=== PATIENT | female | born 1995 | race Caucasian/White ===

== ENCOUNTER 2018-09-09 23:46 | Emergency (ER) | payer SELFPAY ==
[2018-09-10 00:07] VITALS: BMI 56.6
[2018-09-10 00:29] VITALS: O2SAT 100
--- NOTE | 2018-09-10 00:59 | ED PDOC ---
Arrival/HPI <Landen Kern - Last Filed: 09/10/18 01:20> - General Historian: Patient - History of Present Illness Narrative History of Present Illness (Text): 09/10/18 00:53 Mireya Soni is a 23 year old female who presents to the Emergency department complaining of vaginal bleeding since 08/19/18. Patient states yesterday she passed a large clot and thought she may have been and passed tissue. Patient has an IUD in place and had it in place since summer. Patient states he has taken multiple tests in June and July, all of which were negative. Reports no heavy bleeding today. Patient denies any abdominal pain, fever, vomiting, or any other complaints. Symptom Onset: Gradual Symptom Course: Unchanged Activities at Onset: Light Context: Home <Marisa Clarke PA-C - Last Filed: 09/10/18 01:42> - General Chief Complaint: Female Genitourinary Time Seen by Provider: 09/09/18 23:53 Past Medical History - Provider Review Nursing Documentation Reviewed: Yes - Infectious Disease Hx of Infectious Diseases: None - Tetanus Immunization Tetanus Immunization: Up to Date - Cardiac Hx Cardiac Disorders: No - Pulmonary Hx Respiratory Disorders: No - Neurological Hx Neurological Disorder: No - HEENT Hx HEENT Disorder: No - Renal Hx Renal Disorder: No - Endocrine/Metabolic Hx Endocrine Disorders: No - Hematological/Oncological Hx Blood Disorders: No - Integumentary Hx Dermatological Disorder: No - Musculoskeletal/Rheumatological Hx Musculoskeletal Disorders: No - Gastrointestinal Hx Gastrointestinal Disorders: No - Genitourinary/Gynecological Hx Genitourinary Disorders: No - Psychiatric Hx Psychophysiologic Disorder: No Hx Substance Use: No - Anesthesia Hx Anesthesia: No <Marisa Clarke PA-C - Last Filed: 09/10/18 01:42> Family/Social History - Physician Review Nursing Documentation Reviewed: Yes Family/Social History: Unknown Family HX Smoking Status: Never Smoked Hx Alcohol Use: No Hx Substance Use: No <Marisa Clarke PA-C - Last Filed: 09/10/18 01:42> Allergies/Home Meds <Landen Kern - Last Filed: 09/10/18 01:20> <Marisa Clarke PA-C - Last Filed: 09/10/18 01:42> Allergies/Adverse Reactions: Allergies No Known Allergies Allergy (Verified 07/25/16 13:15) Home Medications: Home Meds Medication Instructions Recorded Confirmed Vit Calc,Iron,Folic 1 tab PO DAILY 07/25/16 07/25/16 [ Vitamins] Review of Systems - Physician Review All systems were reviewed & negative as marked: Yes - Review of Systems Constitutional: Normal. absent: Fevers Eyes: Normal ENT: Normal Respiratory: Normal. absent: SOB, Cough Cardiovascular: Normal. absent: Chest Pain Gastrointestinal: Normal. absent: Abdominal Pain, Diarrhea, Nausea, Vomiting Genitourinary Female: Vaginal Bleeding. absent: Dysuria, Frequency, Hematuria, Urine Output Changes Musculoskeletal: Normal. absent: Back Pain, Neck Pain Skin: Normal. absent: Rash Neurological: Normal. absent: Headache, Dizziness Endocrine: Normal Hemo/Lymphatic: Normal Psychiatric: Normal <Marisa Clarke PA-C - Last Filed: 09/10/18 01:42> Physical Exam Vital Signs Pulse Resp BP Pulse Ox 09/10/18 00:07 92 H 18 145/84 100 <Landen Kern - Last Filed: 09/10/18 01:20> Vital Signs Reviewed: Yes Vital Signs Pulse Resp BP Pulse Ox 09/10/18 00:07 92 H 18 145/84 100 Temperature: Afebrile Blood Pressure: Normal Pulse: Regular Respiratory Rate: Normal Appearance: Positive for: Well-Appearing, Non-Toxic, Comfortable Pain Distress: None Mental Status: Positive for: Alert and Oriented X 3 - Systems Exam Head: Present: Atraumatic, Normocephalic Pupils: Present: PERRL Extroacular Muscles: Present: EOMI Conjunctiva: Present: Normal Mouth: Present: Moist Mucous Membranes Neck: Present: Normal Range of Motion Respiratory/Chest: Present: Clear to Auscultation, Good Air Exchange. No: Respiratory Distress, Accessory Muscle Use Cardiovascular: Present: Regular Rate and Rhythm, Normal S1, S2. No: Murmurs Abdomen: No: Tenderness, Distention, Peritoneal Signs Back: Present: Normal Inspection Upper Extremity: Present: Normal Inspection. No: Cyanosis, Edema Lower Extremity: Present: Normal Inspection. No: Edema Neurological: Present: GCS=15, CN II-XII Intact, Speech Normal Skin: Present: Warm, Dry, Normal Color. No: Rashes Psychiatric: Present: Alert, Oriented x 3, Normal Insight, Normal Concentration <Marisa Clarke PA-C - Last Filed: 09/10/18 01:42> Medical Decision Making ED Course and Treatment: 09/10/18 00:53 Impression: 23 year old female complaining of vaginal bleeding since 08/19/18. Plan: -- Urine preg -- Reassess and disposition Progress Notes: [facility] [place] (-). Patient given reassurance. Advised to follow up with her roll plugger in 2-3 days without fail. Return to the ER at any time for any new or worsening symptoms. <Marisa Clarke PA-C - Last Filed: 09/10/18 01:42> - PA / SOLAR INSTALLER TECHNICIAN / Resident Statement LIGIA has reviewed & agrees with the documentation as recorded. <Landen Kern - Last Filed: 09/10/18 01:20> - PA / SOLAR INSTALLER TECHNICIAN / Resident Statement / has reviewed & agrees with the documentation as recorded. - Scribe Statement The provider has reviewed the documentation as recorded by the [place] Provider Scribe Attestation: All medical record entries made by the Esdras were at my direction and personally dictated by me. I have reviewed the chart and agree that the record accurately reflects my personal performance of the history, physical exam, medical decision making, and the department course for this patient. I have also personally directed, reviewed, and agree with the discharge instructions and disposition. <Marisa Clarke PA-C - Last Filed: 09/10/18 01:42> Disposition/Present on Arrival <Landen Kern - Last Filed: 09/10/18 01:20> - Present on Arrival Any Indicators Present on Arrival: No History of DVT/PE: No History of Uncontrolled Diabetes: No Urinary Catheter: No History of Decub. Ulcer: No History Surgical Site Infection Following: None - Disposition Have Diagnosis and Disposition been Completed?: Yes Disposition Time: 01:10 Patient Plan: Discharge <Marisa Clarke PA-C - Last Filed: 09/10/18 01:42> - Disposition Diagnosis: Vaginal bleeding Disposition: HOME/ ROUTINE Patient Problems: Current Active Problems Problem Status Onset Vaginal bleeding Acute Condition: STABLE Discharge Instructions (ExitCare): Intrauterine Devices (IUD) Additional Instructions: Thank you for letting us take care of you today. You were treated for vaginal bleeding. The emergency medical care you received today was directed at your acute symptoms. Return to the Emergency Department if your symptoms worsen, do not improve, or if you have any other problems. Please contact your roll plugger in 2-3 days for re-evaluation and follow up. Bring any paperwork you were given at discharge with you along with any medications you are taking to your follow up visit. Our treatment cannot replace ongoing medical care by a primary care provider (PCP) outside of the emergency department. Thank you for allowing the [email or web address] team to be part of your care today. Forms: [employer] (Guyanese)
[2018-09-10 03:05] VITALS: BP 134/85; PULSE 85; RESP 16
== END 2018-09-10 01:18 | disposition home or self-care (01) ==
LOC: ED 23:46
DX: N93.9 Abnormal uterine and vaginal bleeding, unspecified (principal); Z97.5 Presence of (intrauterine) contraceptive device